=== PATIENT | female | born 1985 | race African-American/Black ===

== ENCOUNTER 2018-05-08 16:44 | Emergency (ER) | payer OTHER, SELFPAY ==
[2018-05-08] MEDS ORDERED: diphenhydrAMINE 50 MG CAP ONE (17:27)
[2018-05-08] MEDS ORDERED: Famotidine 20 MG TAB ONE (17:27)
[2018-05-08] MEDS ORDERED: Dexamethasone 4 MG TAB ONE (17:28)
[2018-05-08] MEDS ORDERED: cloNIDine 0.1 MG TAB ONE (18:22)
== END 2018-05-08 18:28 | disposition home or self-care (01) ==
LOC: ERS 16:44
DX: T63.461A Toxic effect of venom of wasps, accidental (unintentional), initial encounter (principal); F17.210 Nicotine dependence, cigarettes, uncomplicated
CPT/HCPCS: 99282; J8540

== ENCOUNTER 2021-03-23 13:08 | Inpatient (IN) | payer OTHER, SELFPAY ==
[2021-03-23] MEDS ORDERED: Prochlorperazine 10 MG/2 ML VIAL IVP SCH (13:50)
[2021-03-23 14:17] LABS: #Eosinphils 0.1 thou/uL (0.0-0.7); #Lymphocytes 2.9 thou/uL (1.20-3.40); #Monocytes 0.7 thou/uL (0.11-0.59); #Neutrophils 3.3 thou/uL (1.40-6.50); %Basophils 0.2 % (0.0-1.0); %Monocytes 9.4 % (0.0-10.0); %Neutrophils 47.4 % (42.0-75.0); Hemoglobin 11.1 g/dL (12.0-16.0); Mean Corpuscular HGB CONC 30.7 g/dL (32.0-36.0); Mean Corpuscular Hemoglobin 22.9 pg (27.0-31.0); Mean Corpuscular Volume 74.7 fL (78.0-98.0); Mean Platelet Volume 8.6 fL (7.4-10.4); Platelet Count 382 thou/uL (130-400); Red Blood Cell (RBC) Count 4.82 mill/uL (4.20-5.40)
[2021-03-23 14:20] LABS: BHCG - Serum Negative (NEGATIVE); Pregs Control Background? CLEAR/WHITE (CLR/WHITE); Pregs Control Bar Appear? YES (CONTROL BAR)
[2021-03-23] MEDS ORDERED: diphenhydrAMINE 50 MG/ML VIAL ONE (14:31)
[2021-03-23] MEDS ORDERED: Acetaminophen 500 MG TAB ONE (14:31)
[2021-03-23] MEDS ORDERED: Metoclopramide HCl 10 MG/2 ML VIAL ONE (14:31)
[2021-03-23] MEDS ORDERED: hydrALAZINE 20 MG/ML VIAL ONE (14:31)
[2021-03-23 14:32] LABS: ALT (SGPT) 13 U/L (8-55); AST (SGOT) 14 U/L (5-34); Albumin 4.2 g/dL (3.5-5.0); Alkaline Phosphatase 72 U/L (40-110); Anion Gap 13 mmol/L (10-20); BUN (Urea Nitrogen) 9 mg/dL (7.0-18.7); Bilirubin, Total 0.2 mg/dL (0.2-1.2); Calc. Creatinine Clearance 0 mL/min (70-130); Calcium 9.6 mg/dL (7.8-10.44); Carbon Dioxide 24 mmol/L (22-29); Chloride 107 mmol/L (98-107); Globulin 3.4 g/dL (2.4-3.5); Glucose 97 mg/dL (70-105); Potassium 4.5 mmol/L (3.5-5.1); Protein, Total 7.6 g/dL (6.0-8.3); Sodium 139 mmol/L (136-145)
[2021-03-23 14:47] LABS: Hypochromia SLIGHT = 6-15 cells (100X) (0-5/hpf); MDiff Complete? YES; Microcytosis SLIGHT = 6-15 cells (100X) (0-5/hpf); Platelet Morphology Comment Appears Adequate; Polychromasia SLIGHT = 2-3 cells (100X) (0-2/hpf); Target Cells SLIGHT = 2-5 cells (100X) (0-1/hpf)
[2021-03-23 14:49] LABS: PTT 32.1 sec (22.9-36.1); Prothrombin Time 13.6 sec (12.0-14.7)
[2021-03-23] MEDS ORDERED: Aspirin Chewable 81 MG TAB ONE (15:01)
[2021-03-23] MEDS ORDERED: Ondansetron ODT 4 MG TAB PO PRN (15:41)
[2021-03-23] MEDS ORDERED: Ondansetron PF 4 MG/2 ML Vial IVP PRN (15:41)
[2021-03-23] MEDS ORDERED: hydrALAZINE 20 MG/ML VIAL SLOW IVP PRN ×2 (15:41→21:25)
[2021-03-23 17:43] LABS: Iron 32 ug/dL (50-170); Iron Binding Capacity, Total 438 mcg/dL (265-497)
[2021-03-23] MEDS: Nicotine 14 MG PATCH TD SCH (18:43)
[2021-03-23 18:56] VITALS: BMI 47.1
[2021-03-23 19:12] LABS: Hemoglobin A1c 5.8 % (4.0-6.0)
[2021-03-23] MEDS: Atorvastatin Calcium 40 MG TAB PO SCH (20:56)
[2021-03-23] MEDS ORDERED: Amlodipine 5 MG TAB PO SCH ×2 (21:00→23:45)
[2021-03-23 22:37] LABS: Amphetamine Not Detected (NotDetected); Barbiturates Screen Not Detected (NotDetected); Benzodiazepine Screen Not Detected (NotDetected); Cocaine Metabolite Screen Detected (NotDetected); Medtox Control Line Valid? VALID (VALID); Medtox Reader # READER 1; Methadone Not Detected (NotDetected); Methamphetamine Not Detected (NotDetected); Opiate Screen Not Detected (NotDetected); Oxycodone Screen Not Detected (NotDetected); Phencyclidine (PCP) Detected (NotDetected); THC/Cannabinoid Screen Not Detected (NotDetected); Tricyclic Screen Not Detected (NotDetected)
[2021-03-24 05:34] LABS: SARS-CoV-2 PCR by NAA Not Detected (NotDetected)
[2021-03-24 06:03] LABS: Anion Gap 13 mmol/L (10-20); BUN (Urea Nitrogen) 10 mg/dL (7.0-18.7); Calc. Creatinine Clearance 173 mL/min (70-130); Calcium 9.4 mg/dL (7.8-10.44); Carbon Dioxide 19 mmol/L (22-29); Cardiac Risk 5.1 (Less than 4.5); Chloride 107 mmol/L (98-107); Cholesterol 180 mg/dl (< 200 Desired); Glucose 142 mg/dL (70-105); HDL Cholesterol 35 mg/dL (>60 Neg Risk); LDL Cholesterol, Calculated 126 mg/dL; Sodium 135 mmol/L (136-145); Triglycerides 94 mg/dL (Less than 150)
[2021-03-24] MEDS: Acetaminophen 325 MG TAB PO PRN ×2 (08:40→23:35)
[2021-03-24] MEDS: Aspirin 81 mg Enteric Coated Tablet PO SCH (08:41)
[2021-03-24] MEDS ORDERED: Amlodipine 5 MG TAB PO SCH ×2 (09:00→09:30)
[2021-03-24] MEDS ORDERED: hydrALAZINE 20 MG/ML VIAL SLOW IVP PRN (10:51)
[2021-03-24] MEDS: Enoxaparin Sodium 40 MG/0.4 ML SYRINGE SC SCH (11:11)
[2021-03-24] MEDS: Nicotine 14 MG PATCH TD SCH (17:11)
[2021-03-24] MEDS: Atorvastatin Calcium 40 MG TAB PO SCH (19:49)
[2021-03-25 05:57] LABS: Anion Gap 10 mmol/L (10-20); BUN (Urea Nitrogen) 11 mg/dL (7.0-18.7); Calc. Creatinine Clearance 183 mL/min (70-130); Calcium 9.2 mg/dL (7.8-10.44); Carbon Dioxide 21 mmol/L (22-29); Chloride 109 mmol/L (98-107); Glucose 105 mg/dL (70-105); Potassium 3.9 mmol/L (3.5-5.1); Sodium 136 mmol/L (136-145)
[2021-03-25] MEDS ORDERED: Clopidogrel Bisulfate 75 MG TAB PO SCH (09:00)
[2021-03-25] MEDS ORDERED: Losartan 25 MG TAB PO SCH (09:00)
[2021-03-25] MEDS ORDERED: Amlodipine 10 MG TAB PO SCH (09:00)
[2021-03-25] MEDS ORDERED: Amlodipine 5 MG TAB PO SCH (09:00)
[2021-03-25] MEDS: Enoxaparin Sodium 40 MG/0.4 ML SYRINGE SC SCH (09:51)
[2021-03-25] MEDS: Aspirin 81 mg Enteric Coated Tablet PO SCH (09:51)
[2021-03-25 15:58] VITALS: BP 149/94; TEMP 98.2
== END 2021-03-25 17:12 | disposition home or self-care (01) | DRG 65 ==
LOC: ERS 13:08 → ERHOLD 15:18 → 2SE 17:50
PROVIDERS: ADMIT Family Medicine; ATTEND Family Medicine
DX: I63.9 Cerebral infarction, unspecified (principal); N17.9 Acute kidney failure, unspecified; R29.810 Facial weakness; R47.81 Slurred speech; Z82.3 Family history of stroke; F17.210 Nicotine dependence, cigarettes, uncomplicated; I16.0 Hypertensive urgency; I12.9 Hypertensive chronic kidney disease with stage 1 through stage 4 chronic kidney disease, or unspecified chronic kidney disease; D50.9 Iron deficiency anemia, unspecified; F19.10 Other psychoactive substance abuse, uncomplicated
CPT/HCPCS: 36415; 36416; 70450; 70496; 70498; 70551; 71045; 80048; 80053; 80061; 80306; 82728; 83036; 83540; 83550; 83880; 84484; 84703; 85025; 85610; 85730; 87635; 93005; 93306; 96365; 96375; J0360; J0780; J1200; J1650; J2765; U0003; U0005